=== PATIENT | female | born 1960 | race Caucasian/White ===

== ENCOUNTER → 2021-06-21 | Outpatient (CLI) | payer OTHER ==
--- NOTE | 2021-06-23 16:43 | RAD ---
Bilateral digital screening 2-D and 3-D (digital breast tomosynthesis) mammogram: Reason for examination: Routine screening. Comparison: Mammogram from 02/13/2019. Interpretation was made with the benefit of CAD. FINDINGS: Breast density: Category A. Breast tissue is almost entirely fatty. No suspicious breast mass, malignant appearing calcifications, or architectural distortion is seen. IMPRESSION: No evidence of malignancy. Assessment: BI-RADS 1. Negative. Recommendation: Routine screening mammograms. The patient will receive a letter with the results in the mail. Patient information will be entered i nto the mammography reminder system with a target recall date for the next mammogram. A reminder justina er will be generated. Electronically signed by: Charisse Echeverria MD (06/23/2021 4:40 PM) [id number]
== END ==
LOC: MAMMO 15:11
PROVIDERS: ATTEND Obstetrics & Gynecology
DX: Z12.31 Encounter for screening mammogram for malignant neoplasm of breast (principal)
CPT/HCPCS: 77063; 77067

== ENCOUNTER → 2021-08-01 | Outpatient (CLI) | payer OTHER ==
--- NOTE | 2021-08-01 14:46 | RAD ---
EXAMINATION: Right breast ultrasound INDICATION: Patient presents with nipple discharge since April. Patient states that the discharge is campbell in color. COMPARISON: Mammogram from 06/21/2021 and priors FINDINGS: Nipple and retroareolar ultrasound reveals normal fatty replaced fibroglandular breast tiss ue. There are no suspicious masses or dilated ducts. IMPRESSION: 1. BI-RADS: 1. Negative ultrasound. RECOMMENDATION: No imaging findings to correlate with patient's nipple discharge. The color described by the patient favors a benign etiology. Ongoing clinical management of the nipple discharge is recommended. Physica l exam correlation is recommended to exclude Paget's disease. If there is any suspicious change in sy mptoms then additional evaluation with imaging is recommended. Electronically signed by: Gerard Hendricks DO (08/01/2021 2:43 PM) [id number]
== END ==
LOC: US 13:58
PROVIDERS: ATTEND Obstetrics & Gynecology
DX: N64.52 Nipple discharge (principal)
CPT/HCPCS: 76642